=== PATIENT | male | born 1965 | race Caucasian/White ===

== ENCOUNTER 2017-12-16 08:10 | Day surgery (SDC) | payer OTHER ==
[~2017-12-16] VITALS: Ht 182.9 cm; Wt 100.5 kg
[2017-12-16 08:36] VITALS: BP 121/93; PULSE 90; TEMP 98.5
[2017-12-16] MEDS ORDERED: ZESTRIL 10MG10 MG PO (08:42)
[2017-12-16] MEDS ORDERED: THE MEDICINE SH1 T18 PO (08:43)
[2017-12-16] MEDS ORDERED: ADVIL200 MG PO (08:43)
[2017-12-16 09:45] VITALS: BP 133/94; PULSE 77; TEMP 97.9
[2017-12-16 10:00] VITALS: BP 114/78; PULSE 69
[2017-12-16 10:15] VITALS: BP 111/75; PULSE 66
== END 2017-12-16 10:30 | disposition home or self-care (01) ==
LOC: SDCO 08:10
DX: Z12.11 Encounter for screening for malignant neoplasm of colon (principal)
CPT/HCPCS: OP; J2250; J2405; J3010; J7030

== ENCOUNTER 2021-10-12 10:04 | Outpatient (RCR) | payer OTHER ==
[~2021-10-12 10:04] MED LIST: ADVIL200 MG PO; THE MEDICINE SH1 T18 PO; ZESTRIL 10MG10 MG PO
== END 2021-10-17 | disposition home or self-care (01) ==
LOC: PT.GENESIS
DX: M25.561 Pain in right knee (principal)

== ENCOUNTER 2021-10-23 09:09 | Outpatient (RCR) | payer OTHER | END 2021-11-17 13:21 | disposition home or self-care (01) | LOC: PT.GENESIS 09:09 | DX: M25.561 Pain in right knee (principal) ==